=== PATIENT | male | born 1995 | race Caucasian/White ===

== ENCOUNTER 2025-06-29 08:07 | Emergency (ER) | payer BC, SELFPAY ==
[2025-06-29 08:16] VITALS: BP 118/70; PULSE 102; RESP 20; TEMP 38.8; O2SAT 98
--- NOTE | 2025-06-29 08:16 | ED.URI ---
HPI - URI/Sore Throat General Chief Complaint: Upper Respiratory Infection Stated Complaint: achey/shivers/cough Time Seen by Provider: 06/29/25 08:25 Source: patient, RN notes reviewed and old records reviewed Mode of arrival: ambulatory Limitations: no limitations History of Present Illness HPI Narrative: 29 year old male who presents to [facility] care with complaints of cough, fevers, body aches, chills sore throat and some ear pressure since Sunday. Patient reports that he has been taking some Ibuprofen for his symptoms. Patient reports that his daughter had been ill last week with similar symptoms. MD elicited complaint: fever, cough, sore throat, rhinorrhea and nasal congestion Onset (ago): day(s) (day 3 of symptoms) Consistency: constant Severity: moderate Able to tolerate fluids by mouth: Yes Treatments prior to arrival: ibuprofen Related Data Allergies Allergy/AdvReac Type Severity Reaction Status Date / Time No Known Allergies Allergy Verified 06/29/25 08:19 Review of Systems Review of Systems: CONSTITUTIONAL: reports malaise, chills, sweats, or fever. EYES: Denies visual changes, redness, or discharge. ENT: Reports rhinorrhea, congestion, sinus pain, otalgia and sore throat. CARDIOVASCULAR: Denies chest pain, palpitations, or edema. RESPIRATORY: Reports cough.? Denies dyspnea. GASTROINTESTINAL: Denies abdominal pain, nausea, vomiting, diarrhea SKIN: Denies rash or itching. MUSCULOSKELETAL: reports myalgia. NEUROLOGIC: Denies headache. All systems reviewed & are unremarkable except as noted in HPI and below PMFSH Surgical History Surgical History (Updated 06/29/25 @ 08:31 by Mary Crocker APRN) History of skin graft related to dog bite when age 6 Social History Social History (Updated 06/29/25 @ 08:31 by Mary Crocker APRN) Smoking status: Current every day smoker Tobacco type: cigarettes Alcohol intake: current Alcohol use details: social Substance use type: does not use Living arrangements: with family Gender identity (if verbalized by the patient): Male Comments At time of signature, agree with nursing past medical, surgical, social and family history. There is no relevant family history pertinent to the presenting complaint Exam Narrative: GENERAL: Ill-appearing, well-nourished, and in no acute distress.febrile HEAD: Normocephalic EYES: PERRLA, conjunctivae clear ENT: Nares clear, turbinates edematous and erythematous, clear to yellow discharge. Mucous membranes moist. TM pearly dobbins with dull light reflex bilaterally; no tragal tenderness. Oropharynx erythematous without lesions. Tonsils red enlarged and without exudate, no drooling, no hoarseness, no trismus, uvula midline.post nasal drainage present NECK: Supple. No lymphadenopathy CHEST: Clear to auscultation, breath sounds equal. No wheezing, rhonchi, rales, or stridor. No respiratory distress, speaks in full sentences.cough frequent at times productive, SAO2 98% on room air HEART: Regular rate and rhythm. No murmur heard. SKIN: Warm, dry, no rash. NEURO: Alert and oriented x3. PSYCH: Normal mood and affect Course Course Level of Care: Express Care Visit Vital Signs Vital signs: Vital Signs Temperature 38.8 C H 06/29/25 08:16 Pulse Rate 102 H 06/29/25 08:16 Respiratory Rate 20 06/29/25 08:16 Blood Pressure 118/70 06/29/25 08:16 Pulse Oximetry 98 06/29/25 08:16 Oxygen Delivery Room Air 06/29/25 08:16 Temperature 38.8 C H 06/29/25 08:16 Pulse Rate 102 H 06/29/25 08:16 Respiratory Rate 20 06/29/25 08:16 Blood Pressure 118/70 06/29/25 08:16 Pulse Oximetry 98 06/29/25 08:16 Oxygen Delivery Room Air 06/29/25 08:16 reviewed [facility] Narrative Medical decision making narrative: 29 year old male with complaints of 3 day history of cough, fevers, body aches, sore throat chills Patient positive for Influenza A, Tamiflu ordered per patient request. Anticipatory guidance and reasons to seek care in ED reviewed with patient with understanding voiced. Differential Diagnosis Differential Diagnosis: Differential diagnostic considerations for upper respiratory infection include upper respiratory infection, croup, otitis media, sinusitis, viral infection, bronchitis, influenza, pharyngitis, strep, uvulitis.? Lab Data [facility] Lab Attestation statement: I personally reviewed the patient's lab results. Lab results narrative: strep screen negative, culture sent, COVID antigen negative, Influenza A positive, Influenza B Labs: Lab Results 06/29/25 Range/Units 08:30 POC Influenza A Ag Positive (Negative) POC Influenza B Ag Negative (Negative) POC SARS CoV-2 Ag Negative (Negative) POC Grp A Strep Screen Negative (Negative) reviewed Critical Care Time Critical Care Time Critical Care Time: No Discharge Plan Discharge Clinical Impression: Influenza A Patient Disposition: Home Condition: Stable Instructions: Antibiotic Form, Influenza (ED) Additional Instructions: Increase fluids especially juices and water [id number] cough and cold medicine of your choice for your symptoms Tylenol or ibuprofen per package direction for fevers and pain Claritin Zyrtec or Adriana daily heat to the face 20-30 minutes 4-6 times a day for pain Salt water gargles, throat lozenges or throat sprays as desired Your strep test today was negative. A throat culture will be sent to the laboratory for further testing. IF the test is positive, you will receive a phone call within 48 hours and an appropriate antibiotic will be initiated at that time. Tamiflu as prescribed you have been diagnosed with influenza A typically runs about 5 days from start of symptoms. You must be fever free for 24 hours without use of Tylenol or ibuprofen for fevers before you can return to work Patient Language: Yoruba Prescriptions: New oseltamivir [Tamiflu] 75 mg capsule 75 mg PO BID 5 Days Qty: 10 0RF Rx Instructions: take with food complete all doses Follow-up/Referrals: PHYSICIAN,[employer] [facility] ENG[facility]ER [Primary Care Provider, Internal Medicine] Stand Alone Forms: Work/School Release IP Time of Disposition: 08:49 Quality Machelle Coma Scale Eyes: Open Verbal: Oriented and Alert Motor: Follows Commands [place] Coma Total Score: 15
[2025-06-29 09:02] LABS: EDCOVIDSCREEN Negative (Negative); EDINFLUASCREEN Positive (Negative); EDINFLUBSCREEN Negative (Negative); EDSTREPNEGPOS1 Negative (Negative)
== END 2025-06-29 08:58 | disposition home or self-care (01) ==
PROVIDERS: Emergency Provider Registered Nurse
DX: J10.1 Influenza due to other identified influenza virus with other respiratory manifestations (principal); Z20.822 Contact with and (suspected) exposure to COVID-19; F17.210 Nicotine dependence, cigarettes, uncomplicated
CPT/HCPCS: 87081; 87426; 87804; 87880; 99203; G0463